=== PATIENT | female | born 1995 | race Caucasian/White ===

== ENCOUNTER 2023-01-07 10:52 | Emergency (ER) | payer OTHER, MEDICAID ==
[~2023-01-07] VITALS: Ht 157.5 cm; Wt 64.9 kg
[2023-01-07 10:55] VITALS: BP_SYST 141
--- NOTE | 2023-01-07 11:00 | NUR ---
BROUGHT BACK TO BED #7 AND TRIAGED. REPORT GIVEN TO SOPHIE
--- NOTE | 2023-01-07 11:08 | NUR ---
Patient to ER bed 07 to gown for evaluation. Side rails up.
--- NOTE | 2023-01-07 11:14 | NUR ---
pt presents to ed for staple removal [facility]. pt awake a/o x4 and verbally responsive. no acute distress noted, breathing even and unlabored. no pain at this time. safety measures in place
--- NOTE | 2023-01-07 11:30 | NUR ---
md cisneros at bedside
--- NOTE | 2023-01-07 11:38 | NUR ---
discharge instructions reviewed with pt, pt verbalized understanding and denied any questions
== END 2023-01-07 11:38 | disposition home or self-care (01) ==
LOC: SED 10:52
DX: S01.01XA Laceration without foreign body of scalp, initial encounter (principal); Z79.899 Other long term (current) drug therapy; X58.XXXA Exposure to other specified factors, initial encounter; Y93.89 Activity, other specified; Y92.89 Other specified places as the place of occurrence of the external cause; Y99.8 Other external cause status
CPT/HCPCS: 99281

== ENCOUNTER 2024-03-07 23:27 | Emergency (ER) | payer OTHER, MEDICAID ==
[~2024-03-07] VITALS: Ht 157.5 cm; Wt 67.6 kg
[2024-03-07 23:34] VITALS: BP_SYST 120; PULSE 96; RESP 16; TEMP 98.2; O2SAT 98
[2024-03-08] MEDS: NACL 0.9% 1,000 ML IV ONE (00:16)
[2024-03-08] MEDS: ONDANSETRON HCL 4 MG/2 ML VIAL IVP ONE (00:17)
[2024-03-08 00:18] LABS: BASOPHILS # (AUTO) 0.1 K/uL (0.0-0.2); BASOPHILS % (AUTO) 0.5 % (0.0-2.0); EOSINOPHILS # (AUTO) 0.1 K/uL (0.0-0.4); EOSINOPHILS % (AUTO) 0.6 % (0.0-4.0); HEMATOCRIT 41.1 % (36-48); HEMOGLOBIN 13.7 g/dL (12.0-16.0); LYMPHOCYTES # (AUTO) 0.7 K/uL (1.0-5.5); LYMPHOCYTES % (AUTO) 3.5 % (20.5-51.5); MEAN CORPUSCULAR HEMOGLOBIN 29 pg (27-31); MEAN CORPUSCULAR HGB CONC 33 % (32-36); MEAN CORPUSCULAR VOLUME 86 fL (79.0-98.0); MONOCYTES # (AUTO) 0.7 K/uL (0.0-1.0); MONOCYTES % (AUTO) 3.1 % (1.7-9.3); NEUTROPHILS # (AUTO) 19.7 K/uL (1.8-7.7); NEUTROPHILS % (AUTO) 92.3 % (40.0-70.0); PLATELET COUNT (AUTO) 276 K/uL (130-430); RED CELL DISTRIBUTION WIDTH 13.7 % (9.0-15.0); WHITE BLOOD COUNT (AUTO) 21.3 K/uL (4.8-10.8)
[2024-03-08] MEDS: MORPHINE 2 MG/ML INJ. SYRINGE IVP ONE (00:18)
[2024-03-08 00:49] LABS: ALBUMIN 4.1 g/dL (3.4-4.8); BILIRUBIN,DIRECT 0.1 mg/dL (0.0-0.3); CALCIUM 8.4 mg/dL (8.4-11.0); CREATININE 0.92 mg/dL (0.55-1.30); POTASSIUM 3.5 mmol/L (3.5-5.1); TOTAL BILIRUBIN 0.8 mg/dL (0.0-1.0); TOTAL PROTEIN, SERUM 8.6 g/dL (6.4-8.3)
[2024-03-08 01:08] LABS: BILIRUBIN,URINE NEGATIVE (NEGATIVE); BLOOD, URINE NEGATIVE (NEGATIVE); CLARITY/URINE CLEAR (CLEAR); COLOR,URINE YELLOW (YELLOW); GLUCOSE,URINE NEGATIVE (NEGATIVE); KETONES,URINE 1+ (NEGATIVE); LEUKOCYTE ESTERASE ,URINE NEGATIVE (NEGATIVE); NITRITE, URINE NEGATIVE (NEGATIVE); PROTEIN URINE NEGATIVE (NEGATIVE); UROBILINOGEN,URINE 0.2 (0.2-1.0)
[2024-03-08] MEDS ORDERED: ONDA-8 TL (02:23)
[2024-03-08 02:44] VITALS: BP_SYST 105; PULSE 86; RESP 18; TEMP 97.3; O2SAT 97
== END 2024-03-08 02:44 | disposition home or self-care (01) ==
LOC: SED 23:27
DX: K29.70 Gastritis, unspecified, without bleeding (principal); D72.829 Elevated white blood cell count, unspecified
CPT/HCPCS: 99285; 80076; 80048; 81001; 83690; 85025; 36415; 81003; 74176; 96374; 96361; 96375; J2405; J2270; J7030